=== PATIENT | female | born 1975 | race Caucasian/White ===

== ENCOUNTER → 2016-06-01 | Outpatient (CLI) | payer OTHER | END | disposition home or self-care (01) | LOC: RAD.S 13:48 | DX: R31.9 Hematuria, unspecified (principal); R25.2 Cramp and spasm ==

== ENCOUNTER → 2016-06-14 | Outpatient (CLI) | payer OTHER | END | disposition home or self-care (01) | LOC: RAD.S 13:07 | DX: R31.0 Gross hematuria (principal); N20.0 Calculus of kidney ==